=== PATIENT | female | born 1955 | race African-American/Black ===

== ENCOUNTER 2016-06-29 14:45 | Inpatient (IN) | payer OTHER ==
[2016-06-29 15:28] VITALS: BMI 23.2
--- NOTE | 2016-06-29 17:29 | HP ---
COWS - Scale Resting Pulse: 1= SC 81-100 Sweatin= Chills/Flushing Restless Observation: 3= Extraneous Movement Pupil Size: 0= Normal to Room Light Bone or Joint Aches: 2= Severe Diffuse Aches Runny Nose/ Eye Tearin= Nasal Congestion GI Upset > 30mins: 1= Stomach Cramp Tremor Observation: 2= Slight Tremor Visible Yawning Observation: 1= 1-2x During Session Anxiety or Irritability: 2=Irritable/Anxious Goose Flesh Skin: 0=Smooth Skin COWS Score: 14 Admission [facility] Chief Complaint: withdrawal sx Allergies/Adverse Reactions: Allergies Allergy/AdvReac Type Severity Reaction Status Date / Time No Known Allergies Allergy Verified 06/29/16 16:54 History of Present Illness: 61 years old female with long history of heroin nicotine dependence, has asthma , chronic back pain since 2014 and bipolar ii, longest sobriety 10 years is admitted to detox Exam Limitations: No Limitations - Ebola screening Have you traveled outside of the country in the last 21 days: No (N) Have you had contact with anyone from an Ebola affected area: No Have you been sick,other than usual withdrawal symptoms: No Do you have a fever: No - Review of Systems Constitutional: Chills, Loss of Appetite, Changes in sleep, Unintentional Wgt. Loss EENT: reports: Other (eye glasses) Respiratory: reports: Cough, SOB with Exertion Cardiac: reports: No Symptoms Reported GI: reports: Nausea, Poor Appetite, Poor Fluid Intake, Vomiting, Abdominal cramping : reports: No Symptoms Reported Musculoskeletal: reports: Back Pain, Joint Pain, Muscle Pain, Neck Pain Integumentary: reports: No Symptoms Reported Neuro: reports: Tremors Endocrine: reports: No Symptoms Reported Hematology: reports: No Symptoms Reported Psychiatric: reports: Judgement Intact, Orientated x3, Anxious, Depressed Other Systems: Reviewed and Negative Patient History - Patient Medical History Hx Anemia: No Hx Asthma: Yes Hx Chronic Obstructive Pulmonary Disease (COPD): No Hx Cancer: No Hx Cardiac Disorders: No Hx Congestive Heart Failure: No Hx Hypertension: No Hx Hypercholesterolemia: No Hx Pacemaker: No HX Cerebrovascular Accident: No Hx Seizures: No Hx Dementia: No Hx Diabetes: No Hx Gastrointestinal Disorders: No Hx Liver Disease: No Hx Genitourinary Disorders: No Hx Sexually Transmitted Disorders: No Hx Renal Disease (ESRD): No Hx Thyroid Disease: Yes (history of hypothyroid) Hx Human Immunodeficiency Virus (HIV): No Hx Hepatitis C: Yes (scheduled to treat) Hx Depression: No Hx Suicide Attempt: No Hx Bipolar Disorder: Yes Hx Schizophrenia: No - Patient Surgical History Past Surgical History: Yes Hx Neurologic Surgery: No Hx Cataract Extraction: No Hx Cardiac Surgery: No Hx Lung Surgery: No Hx Breast Surgery: No Hx Breast Biopsy: No Hx Abdominal Surgery: No Hx Appendectomy: No Hx Cholecystectomy: No Hx Genitourinary Surgery: No Hx Section: No Hx Orthopedic Surgery: Yes (left shoulder 2009) Hx Hysterectomy: No Other Surgical History: TORN MENISCUS Anesthesia Reaction: No - PPD History Previous Implant?: Yes Documented Results: Negative w/o proof Implanted On Prior R Admission?: No PPD to be Administered?: Yes - Smoking Cessation Smoking history: Current every day smoker Have you smoked in the past 12 months: Yes Aproximately how many cigarettes per day: 10 Cigars Per Day: 0 Hx Chewing Tobacco Use: No Initiated information on smoking cessation: Yes 'Breaking Loose' booklet given: 06/29/16 - Substance & Tx. History Hx Alcohol Use: No Hx Substance Use: Yes Substance Use Type: Heroin, Opiates, Tranquilizers (taking klonopin / oxy at home for anxiety and back pain) Hx Substance Use Treatment: Yes - Substances Abused Heroin Route: Inhalation Frequency: Daily Amount used: 15 BAGS Age of first use: 29 Date of Last Use: 06/29/16 Family Disease History - Family Disease History Family Disease History: Diabetes: Mother, Heart Disease: Grandparent, Brother, Sister, CA: Father Admission Physical Exam S - Vital Signs Vital Signs: Vital Signs - 24 hr 06/29/16 15:25 Temperature 98.7 F Pulse Rate 81 Respiratory 20 Rate Blood Pressure 131/80 - Physical General Appearance: Yes: Appropriately Dressed, Mild Distress, Thin, Tremorous, Irritable, Sweating, Anxious HEENTM: Yes: Hearing grossly Normal, Normal ENT Inspection, Normocephalic, Normal Voice Respiratory: Yes: Chest Non-Tender, Labored Respiration, No Respiratory Distress , No Accessory Muscle Use, Rhonchi, Wheezing, Expiration Neck: Yes: Supple, Trachea in good position Breast: Yes: Breasts Symetrical Cardiology: Yes: Regular Rhythm, Regular Rate, S1, S2 Abdominal: Yes: Non Tender, Soft Genitourinary: Yes: Within Normal Limits Back: Yes: Normal Inspection Musculoskeletal: Yes: full range of Motion, Gait Steady, Back pain, Muscle Pain (left shoulder) Extremities: Yes: Normal Range of Motion, Non-Tender, Tremors Neurological: Yes: Fully Oriented, Alert, Motor Strength 5/5, Normal Response, Depressed Affect Integumentary: Yes: Warm, Moist Lymphatic: Yes: Within Normal Limits - Diagnostic (1) Opioid dependence with withdrawal Current Visit: Yes Status: Acute (2) Asthma Current Visit: Yes Status: Acute Qualifiers: Asthma severity: moderate persistent Asthma complication type: with status asthmaticus Qualified Code(s): J45.42 - Moderate persistent asthma with status asthmaticus Comment: ventolin + duoneb + symbicort + prednison x 4 days (3) Nicotine dependence Current Visit: Yes Status: Acute Qualifiers: Nicotine product type: cigarettes Substance use status: uncomplicated Qualified Code(s): F17.210 - Nicotine dependence, cigarettes, uncomplicated (4) Chronic back pain Current Visit: Yes Status: Chronic Qualifiers: Back pain location: low back pain Back pain laterality: bilateral Sciatica presence: without sciatica Qualified Code(s): M54.5 - Low back pain; G89.29 - Other chronic pain (5) Chronic left shoulder pain Current Visit: Yes Status: Chronic (6) Weight loss Current Visit: Yes Status: Acute Comment: ensure (7) Hepatitis C antibody test positive Current Visit: Yes Status: Chronic Comment: scheduled to be treated Cleared for Admission [facility] - Detox or Rehab [facility] Level of Care: Medically Managed Detox Regimen/Protocol: Methadone [facility] Breath Alcohol Content Breath Alcohol Content: 0 Urine Pregancy Test - Result Urine Test Results: Negative- NO Line Present Urine Drug Screen - Results Drug Screen Negative: No Urine Drug Screen Results: OPI-Opiates, MDMA-Ecstasy, BZO-Benzodiazepines, TCA- Tricyclic Antidepress, OXY-Oxycodone
[2016-06-29] MEDS ORDERED: LOPERAMIDE HCL 2 MG CAPSULE PO PRN (17:34)
[2016-06-29] MEDS ORDERED: MAGNESIUM CITRATE 300 ML BOTTLE PO PRN (17:34)
[2016-06-29] MEDS ORDERED: guaiFENesin/D-METHORPHAN HB 10 ML UNIT-DOSE CUPS PO PRN (17:34)
[2016-06-29] MEDS ORDERED: NICOTINE POLACRILEX 2 MG GUM BC PRN (17:34)
[2016-06-29] MEDS ORDERED: MAGNESIUM HYDROX 2400MG/30ML ORAL SUSPENSION 30 ML CUP PO PRN (17:34)
[2016-06-29] MEDS ORDERED: P-EPHED 60MG/TRIPROLIDI 2.5MG TABLET PO PRN (17:34)
[2016-06-29] MEDS ORDERED: MENTHOL/PHENOL 1 EACH UD MM PRN (17:34)
[2016-06-29] MEDS ORDERED: ACETAMINOPHEN 325 MG TABLET (FP) PO PRN (17:34)
[2016-06-29] MEDS ORDERED: predniSONE 20 MG TABLET (UD) PO SCH (17:45)
[2016-06-29] MEDS ORDERED: METHADONE HCL 10 MG TABLET (FOR DETOX USE ONLY) PO ONE ×2 (18:00→23:00)
[2016-06-29] MEDS: diazePAM 5 MG TABLET PO PRN ×2 (18:12→22:19)
[2016-06-29] MEDS: predniSONE 20 MG TABLET (UD) PO SCH (18:12)
[2016-06-29] MEDS: THIAMINE HCL 100 MG TABLET (FP) PO SCH (22:21)
[2016-06-29] MEDS: BUDESONIDE/FORMETEROL FUMARATE 80/4.5 mcg INHALER IH SCH (22:21)
[2016-06-29] MEDS: diphenhydrAMINE HCL 50 MG CAPSULE PO PRN (22:21)
[2016-06-30] MEDS ORDERED: METHADONE HCL 10 MG TABLET (FOR DETOX USE ONLY) PO ONE (10:00)
--- NOTE | 2016-06-30 10:02 | CONSULT ---
[facility] Psychiatric Consult - Data Date of interview: 06/30/16 Admission source: [facility] Identifying data: This is 61 years old female admitted to [address] [place] [address] for Opioid dependence,Anxiolytic dependence. Substance Abuse History: Reports using heroin since 29 years old,15 bags daily. Klonopin 1 mg po daily on/off. Medical History: Significant for Hep C, Bronchial Asthma, And low back pain. Psychiatric History: Patient was dx with Bipolar II Disoredr a few years ago due to mood instability,anxiety,episodes of depressed mood,alcohol,drug abuse.She denies any history of suicidal attempts,psychiatric admissions.Currently she is under psychiatric care at [facility] in [facility].Medications:Zoloft 100 g po daily and Ambien 10 mg po hs. Mental Status Exam - Mental Status Exam Alert and Oriented to: Time, Place, Person Cognitive Function: Grossly Intact Patient Appearance: Well Groomed Mood: Euthymic Affect: Mood Congruent Patient Behavior: Cooperative Speech Pattern: Clear Voice Loudness: Normal Thought Process: Goal Oriented Hallucinations: Denies Suicidal Ideation: Denies Homicidal Ideation: Denies Insight/Judgement: Fair Sleep: Fair Appetite: Fair Muscle strength/Tone: Normal Gait/Station: Normal Psychiatric Findings - Problem List ([place]ira 1, 2,3) (1) Asthma Current Visit: Yes Status: Chronic Qualifiers: Asthma severity: moderate persistent Asthma complication type: with status asthmaticus Qualified Code(s): J45.42 - Moderate persistent asthma with status asthmaticus Comment: ventolin + duoneb + symbicort + prednison x 4 days (2) Nicotine dependence Current Visit: Yes Status: Chronic Qualifiers: Nicotine product type: cigarettes Substance use status: uncomplicated Qualified Code(s): F17.210 - Nicotine dependence, cigarettes, uncomplicated (3) Opioid dependence with withdrawal Current Visit: Yes Status: Chronic (4) Weight loss Current Visit: Yes Status: Chronic Comment: ensure (5) Chronic back pain Current Visit: Yes Status: Chronic Qualifiers: Back pain location: low back pain Back pain laterality: bilateral Sciatica presence: without sciatica Qualified Code(s): M54.5 - Low back pain; G89.29 - Other chronic pain (6) Chronic left shoulder pain Current Visit: Yes Status: Chronic (7) Hepatitis C antibody test positive Current Visit: Yes Status: Chronic Comment: scheduled to be treated - Initial Treatment Plan Initial Treatment Plan: Continue current medications:Zoloft 100 mg po daily and Ambien 10 mg po hs prn.Will monitor progress.
[2016-06-30 10:34] LABS: MCH 26.6 pg (25.7-33.7); MEAN CELL VOLUME 80.6 fl (80-96); PLATELET COUNT 159 K/MM3 (134-434); RDW 15.4 % (11.6-15.6); WHITE BLOOD COUNT 3.7 K/mm3 (4.0-10.0)
[2016-06-30] MEDS: predniSONE 20 MG TABLET (UD) PO SCH (10:40)
[2016-06-30] MEDS: PRENATAL VITAMINS W/ FOLIC ACID TABLET (FP) PO SCH (10:40)
[2016-06-30] MEDS: IBUPROFEN 400 MG TABLET (FP) PO PRN ×2 (10:44→20:06)
[2016-06-30] MEDS: diazePAM 5 MG TABLET PO PRN ×3 (10:44→23:57)
[2016-06-30] MEDS: NICOTINE 14 MG/24 HOURS TOPICAL PATCH TD SCH (10:47)
[2016-06-30 11:02] LABS: ALBUMIN 3.6 g/dl (3.4-5.0); BILIRUBIN,TOTAL 0.5 mg/dL (0.2-1.0); CALCIUM 9.2 mg/dL (8.5-10.1); CREATININE 1.4 mg/dL (0.55-1.02); TOT PROT 7.6 g/dl (6.4-8.2)
[2016-06-30] MEDS: ALBUTEROL SO4 2.5/IPRATROPIUM 0.5 INH SOL 3 ML VIAL.NEB. NEB PRN ×2 (11:02→18:00)
[2016-06-30] MEDS: BUDESONIDE/FORMETEROL FUMARATE 80/4.5 mcg INHALER IH SCH ×2 (11:15→22:17)
--- NOTE | 2016-06-30 14:06 | PN ---
[facility] COWS - Scale Resting Pulse: 0= VT 80 or Below Sweatin=Flushed/Facial Moisture Restless Observation: 1= Difficult to Sit Still Pupil Size: 1= Pupils >than Normal Bone or Joint Aches: 2= Severe Diffuse Aches Runny Nose/ Eye Tearin= Nasal Congestion GI Upset > 30mins: 1= Stomach Cramp Tremor Observation of Outstretched Hands: 1= Tremor [place], Not Seen Yawning Observation: 0= None Anxiety or Irritability: 2=Irritable/Anxious Goose Flesh Skin: 0=Smooth Skin COWS Score: 11 S Progress Note (SOAP) Subjective: interrupted sleep, sweats, lbp, asthma Objective: 06/30/16 14:04 Vital Signs Temperature 98.1 F 06/30/16 13:55 Pulse Rate 90 06/30/16 13:55 Respiratory Rate 18 06/30/16 13:55 Blood Pressure 145/98 06/30/16 13:55 O2 Sat by Pulse Oximetry (%) Laboratory Tests 06/30/16 06/30/16 06:30 06:30 WBC 3.7 L RBC 4.72 Hgb 12.6 Hct 38.1 MCV 80.6 MCHC 33.0 RDW 15.4 Plt Count 159 MPV 9.0 Sodium 138 Potassium 4.1 Chloride 102 Carbon Dioxide 28 Anion Gap 8 BUN 20 H Creatinine 1.4 H Creat Clearance w eGFR 38.36 Random Glucose 101 Calcium 9.2 Total Bilirubin 0.5 AST 30 ALT 19 Alkaline Phosphatase 98 Total Protein 7.6 Albumin 3.6 pt aox3 , mild-mod sob , ambulating 06/30/16 14:05 lung +wheezes matt 06/30/16 14:06 Assessment: 06/30/16 14:05 withdrawal sx's asthma Plan: cont. detox increase fluids douneb neb q 4 h /prn flexeril 10mg tis/prn cont. prednisone
[2016-06-30] MEDS ORDERED: LIDOCAINE 5% TOPICAL PATCH TP ONE (14:07)
--- NOTE | 2016-06-30 16:16 | EKG ---
Test Reason : Blood Pressure : / mmHG Vent. Rate : 073 BPM Atrial Rate : 073 BPM P-R Int : 206 ms QRS Dur : 078 ms QT Int : 382 ms P-R-T Axes : 075 078 072 degrees QTc Int : 420 ms NORMAL SINUS RHYTHM NORMAL ECG WHEN COMPARED WITH ECG OF 29-JUN-2016 18:21, NO SIGNIFICANT CHANGE WAS FOUND Confirmed by DANYELLE ROCHE MD ([id number]) on 06/30/2016 4:16:24 PM Referred By: Confirmed By:DANYELLE ROCHE MD
--- NOTE | 2016-06-30 16:22 | EKG ---
Test Reason : Blood Pressure : / mmHG Vent. Rate : 076 BPM Atrial Rate : 076 BPM P-R Int : 204 ms QRS Dur : 074 ms QT Int : 394 ms P-R-T Axes : 071 076 067 degrees QTc Int : 443 ms NORMAL SINUS RHYTHM POSSIBLE LEFT ATRIAL ENLARGEMENT CANNOT RULE OUT SEPTAL INFARCT , AGE UNDETERMINED ABNORMAL ECG NO PREVIOUS ECGS AVAILABLE Confirmed by DANYELLE ROCHE MD ([id number]) on 06/30/2016 4:22:23 PM Referred By: Confirmed By:DANYELLE ROCHE MD
[2016-06-30] MEDS: MAG HYDROX/AL HYDROX/SIMETH 30 ML UNIT-DOSE CUP PO PRN (20:04)
[2016-06-30] MEDS: ZOLPIDEM TARTRATE 10 MG TABLET (PARK CARE ONLY) PO PRN (22:18)
[2016-06-30] MEDS: THIAMINE HCL 100 MG TABLET (FP) PO SCH (22:19)
[2016-07-01] MEDS: diphenhydrAMINE HCL 50 MG CAPSULE PO PRN (02:27)
[2016-07-01] MEDS: IBUPROFEN 400 MG TABLET (FP) PO PRN (02:27)
[2016-07-01] MEDS: diazePAM 5 MG TABLET PO PRN ×3 (04:20→22:11)
[2016-07-01] MEDS ORDERED: METHADONE HCL 5 MG TABLET (FOR DETOX USE ONLY) PO ONE (10:00)
[2016-07-01] MEDS: SERTRALINE HCL 50 MG TABLET (FP) PO SCH (10:23)
[2016-07-01] MEDS: predniSONE 20 MG TABLET (UD) PO SCH (10:23)
[2016-07-01] MEDS: PRENATAL VITAMINS W/ FOLIC ACID TABLET (FP) PO SCH (10:23)
[2016-07-01] MEDS: cloNIDine HCL 0.1 MG TABLET PO SCH ×2 (10:23→22:10)
[2016-07-01] MEDS: NICOTINE 14 MG/24 HOURS TOPICAL PATCH TD SCH (10:24)
[2016-07-01] MEDS: BUDESONIDE/FORMETEROL FUMARATE 80/4.5 mcg INHALER IH SCH ×2 (10:26→22:12)
--- NOTE | 2016-07-01 10:56 | PN ---
[facility] COWS - Scale Resting Pulse: 1= NM 81-100 Sweatin= Chills/Flushing Restless Observation: 1= Difficult to Sit Still Pupil Size: 1= Pupils >than Normal Bone or Joint Aches: 2= Severe Diffuse Aches Runny Nose/ Eye Tearin= Nasal Congestion GI Upset > 30mins: 1= Stomach Cramp Tremor Observation of Outstretched Hands: 1= Tremor [place], Not Seen Yawning Observation: 0= None Anxiety or Irritability: 2=Irritable/Anxious Goose Flesh Skin: 0=Smooth Skin COWS Score: 11 BHS Progress Note (SOAP) Subjective: interrupted sleep, sweats ,lbp , asthma better Objective: 07/01/16 10:54 Vital Signs Temperature 99.5 F 07/01/16 10:00 Pulse Rate 97 H 07/01/16 10:00 Respiratory Rate 20 07/01/16 10:00 Blood Pressure 140/100 07/01/16 10:00 O2 Sat by Pulse Oximetry (%) Vital Signs Temperature 99.5 F 07/01/16 10:00 Pulse Rate 97 H 07/01/16 10:00 Respiratory Rate 20 07/01/16 10:00 Blood Pressure 140/100 07/01/16 10:00 O2 Sat by Pulse Oximetry (%) Laboratory Tests 06/30/16 06/30/16 06/30/16 06:30 06:30 06:30 WBC 3.7 L RBC 4.72 Hgb 12.6 Hct 38.1 MCV 80.6 MCHC 33.0 RDW 15.4 Plt Count 159 MPV 9.0 Sodium 138 Potassium 4.1 Chloride 102 Carbon Dioxide 28 Anion Gap 8 BUN 20 H Creatinine 1.4 H Creat Clearance w eGFR 38.36 Random Glucose 101 Calcium 9.2 Total Bilirubin 0.5 AST 30 ALT 19 Alkaline Phosphatase 98 Total Protein 7.6 Albumin 3.6 RPR Titer Reactive 1:1 H pt aox3 , restless not sob lungs mild exp wheezing 07/01/16 10:57 Assessment: 07/01/16 10:55 withdrawl sx's asthma improving Plan: cont, detox increase fluids clonidine 0.1mg bid
[2016-07-01] MEDS: LIDOCAINE 5% TOPICAL PATCH TP SCH (11:24)
[2016-07-01] MEDS: ZOLPIDEM TARTRATE 10 MG TABLET (PARK CARE ONLY) PO PRN (22:09)
[2016-07-01] MEDS: THIAMINE HCL 100 MG TABLET (FP) PO SCH (22:10)
[2016-07-01] MEDS: ALBUTEROL SO4 6.7 GM HFA INHALER IH PRN (22:13)
[2016-07-02] MEDS: diazePAM 5 MG TABLET PO PRN ×3 (04:27→17:13)
[2016-07-02] MEDS ORDERED: METHADONE HCL 5 MG TABLET (FOR DETOX USE ONLY) PO ONE (10:00)
[2016-07-02] MEDS: SERTRALINE HCL 50 MG TABLET (FP) PO SCH (10:09)
[2016-07-02] MEDS: predniSONE 20 MG TABLET (UD) PO SCH (10:09)
[2016-07-02] MEDS: cloNIDine HCL 0.1 MG TABLET PO SCH ×2 (10:09→22:10)
[2016-07-02] MEDS: NICOTINE 14 MG/24 HOURS TOPICAL PATCH TD SCH (10:09)
[2016-07-02] MEDS: BUDESONIDE/FORMETEROL FUMARATE 80/4.5 mcg INHALER IH SCH ×2 (10:10→22:10)
[2016-07-02] MEDS: PRENATAL VITAMINS W/ FOLIC ACID TABLET (FP) PO SCH (10:10)
--- NOTE | 2016-07-02 10:11 | PN ---
BHS Progress Note (SOAP) Subjective: chills sweats stomach ache back pain Objective: 07/02/16 10:11 Vital Signs Temperature 98.6 F 07/02/16 09:58 Pulse Rate 87 07/02/16 09:58 Respiratory Rate 18 07/02/16 09:58 Blood Pressure 124/95 07/02/16 09:58 O2 Sat by Pulse Oximetry (%) Laboratory Tests 06/30/16 06/30/16 06/30/16 06:30 06:30 06:30 WBC 3.7 L RBC 4.72 Hgb 12.6 Hct 38.1 MCV 80.6 MCHC 33.0 RDW 15.4 Plt Count 159 MPV 9.0 Sodium 138 Potassium 4.1 Chloride 102 Carbon Dioxide 28 Anion Gap 8 BUN 20 H Creatinine 1.4 H Creat Clearance w eGFR 38.36 Random Glucose 101 Calcium 9.2 Total Bilirubin 0.5 AST 30 ALT 19 Alkaline Phosphatase 98 Total Protein 7.6 Albumin 3.6 RPR Titer Reactive 1:1 H T.pallidum Ab (MHA) Reactive awake/alert ambulating no acute distress Assessment: 07/02/16 10:12 withdrawal sx Plan: continue detox increase fluids
--- NOTE | 2016-07-02 10:57 | PN ---
Psychiatric Progress Note Vital Signs: Vital Signs Period Temp Pulse Resp BP Sys/Ridley Pulse Ox Last 24 Hr 97.9 F-98.6 F 60-87 16-18 110-145/72-95 Date of Session: 07/02/16 Chief Complaint:: Insomnia HPI: Patient reports insomnia, reports using Ambien 10mg po qhs with good response Current Medications: Active Medications Generic Name Dose Route Start Last Admin Trade Name Freq PRN Reason Stop Dose Admin Acetaminophen 650 mg 06/29/16 17:34 Tylenol - PO Q4H PRN FEVER OR PAIN Al Hydroxide/Mg Hydroxide 30 ml 06/29/16 17:34 06/30/16 20:04 Mylanta Oral Suspension - PO 30 ml Q6H PRN Administration DYSPEPSIA Albuterol Sulfate 2 puff 06/29/16 17:36 07/01/16 22:13 Ventolin Hfa Inhaler - IH 2 inh Q4H PRN Administration SHORT OF BREATH/WHEEZING Albuterol/Ipratropium 1 amp 06/29/16 17:37 06/30/16 18:00 Duoneb - NEB 1 amp Q6H PRN Administration SHORTNESS OF BREATH Budesonide/Formoterol Fumarate 2 puff 06/29/16 22:00 07/02/16 10:10 Symbicort 80/4.5mcg - IH 2 inh BID HARISH Administration Clonidine 0.1 mg 07/01/16 10:00 07/02/16 10:09 Catapres - PO 0.1 mg BID HARISH Administration Diazepam 10 mg 06/29/16 17:34 07/02/16 10:09 Valium - PO 07/02/16 17:33 10 mg Q4H PRN Administration WITHDRAWAL(CONT SUBST) Diphenhydramine HCl 50 mg 06/29/16 17:34 07/01/16 02:27 Benadryl - PO 50 mg HSMR1 PRN Administration INSOMNIA Eucalyptus/Menthol/Phenol/Sorbitol 1 each 06/29/16 17:34 Cepastat Lozenge - MM Q4H PRN SORE THROAT Guaifenesin 10 ml 06/29/16 17:34 Robitussin Dm - PO Q6H PRN COUGH Ibuprofen 400 mg 06/29/16 17:34 07/01/16 02:27 Motrin - PO 400 mg Q6H PRN Administration SEVERE PAIN Lidocaine 1 patch 07/01/16 10:00 07/01/16 11:24 Lidoderm Patch - TP 1 patch DAILY HARISH Administration Loperamide HCl 4 mg 06/29/16 17:34 Imodium - PO Q6H PRN DIARRHEA Magnesium Citrate 300 ml 06/29/16 17:34 Citroma - PO Q48H PRN CONSTIPATION Magnesium Hydroxide 30 ml 06/29/16 17:34 Milk Of Magnesia - PO DAILY PRN CONSTIPATION Methadone HCl 10 mg 07/03/16 10:00 Dolophine - PO 07/03/16 10:01 ONCE ONE Methadone HCl 5 mg 07/04/16 06:00 Dolophine - PO 07/04/16 06:01 ONCE@0600 ONE Nicotine 14 mg 06/30/16 10:00 07/02/16 10:09 Nicoderm Patch - TD 14 mg DAILY HARISH Administration Nicotine Polacrilex 2 mg 06/29/16 17:34 06/30/16 14:27 Nicorette Gum - BC 2 mg Q2H PRN Administration NICOTINE REPLACEMENT RX Prednisone 40 mg 06/29/16 18:00 07/02/16 10:09 Deltasone - PO 07/03/16 17:59 40 mg DAILY HARISH Administration Multivit/Folic Acid/Iron 1 tab 06/30/16 10:00 07/02/16 10:10 Vitamins (Sjr) - PO 1 tab DAILY HARISH Administration Pseudoephedrine/Triprolidine 1 combo 06/29/16 17:34 07/01/16 10:26 Actifed - PO 1 combo TID PRN Administration NASAL CONGESTION Quetiapine Fumarate 100 mg 07/02/16 22:00 Seroquel - PO HS HARISH Sertraline HCl 100 mg 07/01/16 10:00 07/02/16 10:09 Zoloft - PO 100 mg DAILY HARISH Administration Thiamine HCl 100 mg 06/29/16 22:00 07/01/16 22:10 Vitamin B1 - PO 100 mg HS HARISH Administration Trazodone HCl 50 mg 07/02/16 22:00 Desyrel - PO HS HARISH Zolpidem Tartrate 10 mg 06/30/16 22:00 07/01/16 22:09 Ambien - PO 07/03/16 21:59 10 mg HS PRN Administration INSOMNIA Zolpidem Tartrate 10 mg 07/02/16 22:00 Ambien - PO 07/05/16 21:59 HS PRN INSOMNIA Medication(s) Change(s): Ambien 10mg po qhs Mental Status Exam - Mental Status Exam Alert and Oriented to: Person Cognitive Function: Fair Patient Appearance: Well Groomed Mood: Anxious Affect: Appropriate Patient Behavior: Cooperative Speech Pattern: Appropriate Voice Loudness: Normal Thought Process: Goal Oriented Thought Disorder: Being Controlled Hallucinations: Denies Suicidal Ideation: Denies Homicidal Ideation: Denies Insight/Judgement: Fair Sleep: Difficulty falling asleep Appetite: Weight loss Muscle strength/Tone: Normal Gait/Station: Normal Additional Comments: Ambien 10mg po qhs Psychiatric Treatment Plan - Problem List (1) Nicotine dependence Current Visit: Yes Qualifiers: Nicotine product type: cigarettes Substance use status: uncomplicated Qualified Code(s): F17.210 - Nicotine dependence, cigarettes, uncomplicated (2) Opioid dependence with withdrawal Current Visit: Yes (3) Drug-induced mood disorder Current Visit: Yes Initial treatment plan: Ambien 10mg po qhs
[2016-07-02] MEDS: LIDOCAINE 5% TOPICAL PATCH TP SCH (11:15)
[2016-07-02 15:44] LABS: URINE APPEARANCE SLCLOUDY; URINE BILIRUBIN NEGATIVE (NEGATIVE); URINE BLOOD NEGATIVE (NEGATIVE); URINE COLOR LTYELLOW; URINE GLUCOSE (UA) NEGATIVE (NEGATIVE); URINE KETONE NEGATIVE (NEGATIVE); URINE LEUK ESTERASE NEGATIVE (NEGATIVE); URINE NITRITE NEGATIVE (NEGATIVE); URINE PROTEIN NEGATIVE (NEGATIVE); URINE UROBILINOGEN NEGATIVE E.U./dl (0.2-1.0)
[2016-07-02] MEDS: ALBUTEROL SO4 6.7 GM HFA INHALER IH PRN (20:21)
[2016-07-02] MEDS ORDERED: ZOLPIDEM TARTRATE 10 MG TABLET (PARK CARE ONLY) PO PRN (22:00)
[2016-07-02] MEDS ORDERED: QUEtiapine FUMARATE 100 MG TABLET (FP) PO SCH (22:00)
[2016-07-02] MEDS ORDERED: traZODone HCL 50 MG TABLET (FP) PO SCH (22:00)
[2016-07-02] MEDS: ZOLPIDEM TARTRATE 10 MG TABLET (PARK CARE ONLY) PO PRN (22:08)
[2016-07-02] MEDS: THIAMINE HCL 100 MG TABLET (FP) PO SCH (22:10)
[2016-07-02] MEDS: MAG HYDROX/AL HYDROX/SIMETH 30 ML UNIT-DOSE CUP PO PRN (22:41)
[2016-07-02] MEDS: IBUPROFEN 400 MG TABLET (FP) PO PRN (22:44)
[2016-07-03] MEDS: IBUPROFEN 400 MG TABLET (FP) PO PRN (04:22)
[2016-07-03] MEDS ORDERED: CYCLOBENZAPRINE HCL 10 MG TABLET (FP) PO PRN (04:24)
[2016-07-03] MEDS ORDERED: hydrOXYzine PAMOATE 50 MG CAPSULE (FP) PO PRN (04:24)
[2016-07-03 06:20] VITALS: TEMP 98.4
[2016-07-03 09:54] VITALS: BP 135/94; PULSE 91
[2016-07-03] MEDS ORDERED: METHADONE HCL 10 MG TABLET (FOR DETOX USE ONLY) PO ONE (10:00)
--- NOTE | 2016-07-03 10:01 | PN ---
BHS Progress Note (SOAP) Subjective: irritable sweats agitation Objective: 07/03/16 09:58 Vital Signs Temperature 98.4 F 07/03/16 09:53 Pulse Rate 91 H 07/03/16 09:53 Respiratory Rate 18 07/03/16 09:53 Blood Pressure 135/94 07/03/16 09:53 O2 Sat by Pulse Oximetry (%) awake/alert ambulating no acute distress Assessment: 07/03/16 09:59 withdrawal sx Plan: continue detox increase fluids d/c in am
[2016-07-03] MEDS: predniSONE 20 MG TABLET (UD) PO SCH (10:04)
[2016-07-03] MEDS: SERTRALINE HCL 50 MG TABLET (FP) PO SCH (10:04)
[2016-07-03] MEDS: PRENATAL VITAMINS W/ FOLIC ACID TABLET (FP) PO SCH (10:04)
[2016-07-03] MEDS: LIDOCAINE 5% TOPICAL PATCH TP SCH (10:05)
[2016-07-03] MEDS: NICOTINE 14 MG/24 HOURS TOPICAL PATCH TD SCH (10:05)
[2016-07-03] MEDS: cloNIDine HCL 0.1 MG TABLET PO SCH (10:05)
[2016-07-03] MEDS: BUDESONIDE/FORMETEROL FUMARATE 80/4.5 mcg INHALER IH SCH (10:06)
--- NOTE | 2016-07-03 11:29 | DS ---
[facility] Detox Discharge Summary Admission Date: 06/29/16 - History Present History: Opioid Dependence - Physical Exam Results Vital Signs: Vital Signs Temperature 98.4 F 07/03/16 09:53 Pulse Rate 91 H 07/03/16 09:53 Respiratory Rate 18 07/03/16 09:53 Blood Pressure 135/94 07/03/16 09:53 O2 Sat by Pulse Oximetry (%) - Medication Discharge Medications: Ambulatory Orders Albuterol Sulfate Inhaler - [Ventolin Hfa Inhaler -] 1 - 2 inh PO QID 06/29/16 Salmeterol/Fluticasone [Advair 250Mcg/50Mcg -] 250 inh BID 06/29/16 Zolpidem Tartrate [Ambien] 10 mg PO HS 06/29/16 Quetiapine Fumarate [Seroquel] 100 tab PO HS #30 tablet 07/02/16 Sertraline HCl [Zoloft -] 100 mg PO DAILY #30 07/02/16 Sertraline HCl [Zoloft -] 100 mg PO DAILY #30 tablet 07/02/16 Trazodone HCl [Desyrel -] 50 mg PO HS #30 tablet 07/02/16 Zolpidem Tartrate [Ambien] 0 mg PO HS #14 tablet [facility]D 10 07/02/16 Zolpidem Tartrate [Ambien] 10 mg GT HS #14 tablet [facility] 10 07/02/16 Zolpidem Tartrate [Ambien] 10 mg GT HS #14 tablet MDD 10 07/02/16 Zolpidem Tartrate [Ambien] 10 mg GT HS #14 tablet [facility] 10 07/02/16 Zolpidem Tartrate [Ambien] 10 mg PO HS PRN #14 tablet [facility] 07/02/16 Zolpidem Tartrate [Ambien] 10 mg PO HS PRN #14 tablet [facility] 07/02/16 - Diagnosis (1) Drug-induced mood disorder Current Visit: Yes Status: Chronic (2) Asthma Current Visit: Yes Status: Chronic Qualifiers: Asthma severity: moderate persistent Asthma complication type: with status asthmaticus Qualified Code(s): J45.42 - Moderate persistent asthma with status asthmaticus (3) Chronic back pain Current Visit: Yes Status: Chronic Qualifiers: Back pain location: low back pain Back pain laterality: bilateral Sciatica presence: without sciatica Qualified Code(s): M54.5 - Low back pain; G89.29 - Other chronic pain (4) Chronic left shoulder pain Current Visit: Yes Status: Chronic (5) Hepatitis C antibody test positive Current Visit: Yes Status: Chronic (6) Nicotine dependence Current Visit: Yes Status: Chronic Qualifiers: Nicotine product type: cigarettes Substance use status: uncomplicated Qualified Code(s): F17.210 - Nicotine dependence, cigarettes, uncomplicated (7) Opioid dependence with withdrawal Current Visit: Yes Status: Chronic (8) Weight loss Current Visit: Yes Status: Chronic - AMA Did Patient Leave Against Medical Advice: Yes
[2016-07-04] MEDS ORDERED: METHADONE HCL 5 MG TABLET (FOR DETOX USE ONLY) PO ONE (06:00)
== END 2016-07-03 11:30 | disposition left against medical advice (07) | DRG 894 ==
LOC: YASAS 14:45 → Y6N 16:55
PROVIDERS: ADMIT Internal Medicine; ATTEND Internal Medicine
PROC: HZ2ZZZZ Detoxification Services for Substance Abuse Treatment (ICD-10-PCS; principal; 2016-06-29)
DX: F11.23 Opioid dependence with withdrawal (principal); J45.42 Moderate persistent asthma with status asthmaticus; F17.210 Nicotine dependence, cigarettes, uncomplicated; F19.24 Other psychoactive substance dependence with psychoactive substance-induced mood disorder; G47.00 Insomnia, unspecified; B18.2 Chronic viral hepatitis C; M54.5 Low back pain; M25.512 Pain in left shoulder; G89.29 Other chronic pain; Z87.898 Personal history of other specified conditions; Z86.39 Personal history of other endocrine, nutritional and metabolic disease; Z59.0 Homelessness
CPT/HCPCS: 36415; 80053; 81003; 85027; 86593; 86780; 93005; 93010; 94640